=== PATIENT | male | born 1950 | race Caucasian/White ===

== ENCOUNTER → 2018-07-09 | Outpatient (CLI) | payer MEDICARE, BC ==
[~2018-07-09] MED LIST: ASPIRIN 81M81 MG/TA2 PO; COQ(10)1010 MG PO; COZAAR100 MG PO; D3-55000 IU PO; OMEGA-31000 MG PO; VITAMIN B-1000 MCG/T PO; [UNRECOGNIZED DRUG - OTHER] PO
== END ==
LOC: COL.LAB 11:49
DX: K74.60 Unspecified cirrhosis of liver (principal)